=== PATIENT | male | born 1950 | race African-American/Black ===

== ENCOUNTER 2020-07-20 11:14 | Emergency (ER) | payer MEDICARE ==
[2020-07-20] MEDS ORDERED: Calcium Chloride 1 GM/10 ML Abboject SYRINGE ONE (11:18)
[2020-07-20] MEDS ORDERED: Atropine Sulfate 1 mg/10 ml Syringe ONE (11:18)
[2020-07-20] MEDS ORDERED: EPINEPHrine 1 MG/10 ML Abboject SYRINGE ONE ×4 (11:18→11:34)
[2020-07-20] MEDS ORDERED: Sodium Bicarb 50 MEQ/50 ML Abboject 8.4% SYRINGE ONE (11:18)
[2020-07-20] MEDS ORDERED: DOBUTamine 500 mg/250 ml 250 ML ONE (12:07)
[2020-07-20 12:11] LABS: Hemoglobin 12.8 g/dL (14.0-18.0); Mean Corpuscular HGB CONC 31.8 g/dL (32.0-36.0); Mean Corpuscular Hemoglobin 30.8 pg (27.0-31.0); Mean Corpuscular Volume 96.8 fL (78.0-98.0); RBC Distribution Width 14.1 % (11.5-14.5); Red Blood Cell (RBC) Count 4.17 mill/uL (4.70-6.10)
[2020-07-20 12:19] LABS: INR-International Normal Ratio 1.4; PTT 28.4 sec (22.9-36.1); Prothrombin Time 17.9 sec (12.0-14.7)
[2020-07-20 12:25] LABS: Band 9 % (5-11); Burr Cells SLIGHT = 2-5 cells (100X) (0-1/hpf); Large Platelets SLIGHT; Lymphocytes 13 % (21-51); MDiff Complete? YES; Mean Platelet Volume 10.9 fL (7.4-10.4); Metamyelocyte 2 % (0-0); Monocytes 1 % (0-10); Neutrophil 75 % (42-75); Platelet Count 129 thou/uL (130-400); Platelet Morphology Comment Appears Decreased; Polychromasia SLIGHT = 2-3 cells (100X) (0-2/hpf)
[2020-07-20 12:49] LABS: ALT (SGPT) 39 U/L (8-55); AST (SGOT) 77 U/L (5-34); Albumin 1.9 g/dL (3.4-4.8); Alkaline Phosphatase 61 U/L (40-110); Anion Gap 28 mmol/L (10-20); BUN (Urea Nitrogen) 56 mg/dL (8.4-25.7); Bilirubin, Total 1.1 mg/dL (0.2-1.2); CK (CPK) 413 U/L (30-200); Calc. Creatinine Clearance 0 mL/min (70-130); Calcium 8.1 mg/dL (7.8-10.44); Carbon Dioxide 12 mmol/L (23-31); Chloride 102 mmol/L (98-107); Globulin 4.4 g/dL (2.4-3.5); Glucose 204 mg/dL (80-115); Lipase 51 U/L (8-78); Potassium 5.5 mmol/L (3.5-5.1); Protein, Total 6.3 g/dL (5.8-8.1); Sodium 135 mmol/L (136-145)
[2020-07-20 12:53] LABS: CKMB 6.6 ng/mL (0-6.6)
[2020-07-20 17:03] LABS: SARS-CoV-2 NAA Rapid Test DETECTED (NotDetected)
== END 2020-07-20 12:30 | disposition expired ==
LOC: ERS 11:14
DX: I46.9 Cardiac arrest, cause unspecified (principal)
CPT/HCPCS: 80053; 82550; 82553; 82962; 83605; 83690; 84484; 85025; 85610; 85730; 92950; 93005; 96365; 96368; 96375; 96376; 99291; U0002; U0005; 36416; J0171; J0461; J1250